=== PATIENT | male | born 1960 | race African-American/Black ===

== ENCOUNTER 2016-11-21 11:10 | Emergency (ER) | payer OTHER ==
[~2016-11-21] VITALS: Ht 180.3 cm; Wt 122.7 kg
[2016-11-21 11:31] VITALS: BP 134/74; PULSE 68; RESP 20; O2SAT 97
--- NOTE | 2016-11-21 11:37 | ED.REPORT ---
HPI-Headache Date of Service Nov 21, 2016 ED Provider: The patient is a 56 year old male with history of hypertension, atrial fibrillation on Pradaxa, and obstructive sleep apnea, who was brought to the emergency department by EMS complaining of lightheadedness. The patient was started on Flecainide 2 weeks ago for atrial fibrillation. Since he was started on this medication he has experienced nonvertiginous dizziness, lightheadedness , and nausea. His symptoms are not worse with standing or sitting up. He called his product sales engineer today who wanted him to come to the office. The patient did not feel well enough to drive so he called 911 and was brought to the emergency department. He is feeling better at this time. He denies loss of consciousness, chest pain, shortness of breath, headache, numbness or weakness. He states that he would like to establish with a product sales engineer in [place] so that he does not have to drive to [place] anymore. Nursing Notes Stated Complaint: DIZZY Chief Complaint: Headache Nursing Notes Reviewed: Yes Allergies: Coded Allergies: No Known Allergies (Unverified , 11/21/16) General Time Seen by MD: 11:37 Chief Complaint Other (lightheadedness) Hx Obtained From: Patient, EMS Arrived By: Ambulance Sudden in Onset?: No Onset Occurred: More than a week ago... Symptom Duration: Since onset Severity: Current: No pain currently Severity: Maximum: No pain Recent Healthcare: No recent hospitalization, Recent doctor visit Similar Sx Previous: Yes Past Medical History Past Medical History Hypertension Atrial fibrillation NICOLE Family History Noncontributory Smoking History Unknown if Ever Smoker Social History Other Social History: Local resident Ambulatory Status Independent Review of Systems GI: Reports: Nausea Neurologic: Reports: Dizziness, Lightheaded, Denies: Focal weakness, Headache, Numbness Complete sys rev & neg: except as marked. Respiratory: Denies: Shortness of breath Cardiovascular: Denies: Chest pain Physical Exam Initial Vital Signs Vital Signs (First) Date Time Temp Pulse Resp B/P Pulse Ox O2 Delivery O2 Flow Rate FiO2 11/21/16 11:31 37.1 68 20 134/74 97 Room Air Initial VS: Reviewed ENT: Mucous membranes moist, Conjunctiva normal, No scleral icterus Respiratory: Breath sounds normal, Clear to auscultation, No respiratory distress Abdomen / GI: Soft, Non-tender, No guarding, No rebound, No distention Lymphatic: No lymphadenopathy Extremities: Vascular intact, Neuro intact, No swelling, No tenderness Skin: Warm, Dry, No cyanosis Psychiatric: Mood/affect normal, Behavior normal, Normal thought content General/Constitutional: Awake, Alert, No acute distress, Cooperative Head / Eyes: Atraumatic, Normocephalic, PERRL, EOMI Neck: Atraumatic, Supple, No meningismus, Full range of motion, No swelling, Non-tender, No midline vertebral tend, No masses Neurologic: Oriented X3, Speech NL, No motor deficits, No sensory deficits, Cerebellar NL, Memory NL Cardiovascular: Heart rate NL, Heart sounds NL Heart Rate / Rhythm: Positive: Irregular rhythm Lower Extremity / Pelvis / MS: Neurologic intact, Vascular intact, No edema No calf swelling or tenderness. Interpretation & Diagnostics Lab Results Interpretation Result Diagram: 11/21/16 1330 11/21/16 1330 Test 11/21/16 11:43 11/21/16 13:30 Hold Lamb Top Tube Received (Received) White Blood Count 10.4th/mm3 (3.8-10.1) Red Blood Count 4.59mil/mm3 (4.40-5.80) Hemoglobin 12.5g/dL (13.8-17.2) Hematocrit 37.8% (41.0-50.0) Mean Corpuscular Volume 82.4fL (81-100) Mean Corpuscular Hemoglobin 27.2pg (27.0-35.0) Mean Corpuscular Hemoglobin Concent 33.1% (32.0-37.0) Red Cell Distribution Width 15.1% (12.3-15.4) Platelet Count 186bil/L (150-400) Neutrophils (%) (Auto) 80.1% (40-74) Lymphocytes (%) (Auto) 14.0% (14-46) Monocytes (%) (Auto) 4.9% (4-12) Eosinophils (%) (Auto) 0.5% (0-5) Basophils (%) (Auto) 0.2% (0-3) Sodium Level 138mEq/L (134-144) Potassium Level 4.5mEq/L (3.5-5.2) Chloride Level 99mEq/L (97-108) Carbon Dioxide Level 21mmol/L (18-29) Blood Urea Nitrogen 12mg/dL (6-24) Creatinine 1.07mg/dL (0.76-1.27) Estimat Glomerular Filtration Rate 75mL/min (>59) Glucose Level 191mg/dL (60-99) Calcium Level 8.8mg/dL (8.5-10.1) Total Bilirubin 0.2mg/dL (0.0-1.2) Aspartate Amino Transf (AST/SGOT) 43U/L (0-50) Alanine Aminotransferase (ALT/SGPT) 109U/L (0-44) Alkaline Phosphatase 112U/L (25-150) Troponin T < 0.010ug/L (0.0-0.011) Total Protein 7.4g/dL (6.4-8.4) Albumin 3.9g/dL (3.4-5.0) ECG Interpretation ECG Interpretation: Atrial fibrillation at a rate of 71 bpm Normal axis Normal intervals No ST segment elevations No T wave abnormalities No prior available for comparison Time: 12:20 Interpreted by: ED physician Re-Eval/Medical Decision Med Decision/Clinical Course The patient is a 56 year old male with history of hypertension, atrial fibrillation on Pradaxa, and obstructive sleep apnea, who was brought to the emergency department by EMS complaining of lightheadedness. The patient was started on Flecainide 2 weeks ago for atrial fibrillation. Since he was started on this medication he has experienced nonvertiginous dizziness, lightheadedness , and nausea. His symptoms are not worse with standing or sitting up. He called his product sales engineer today who wanted him to come to the office. The patient did not feel well enough to drive so he called 911 and was brought to the emergency department. He is feeling better at this time. He denies loss of consciousness, chest pain, shortness of breath, headache, numbness or weakness. He states that he would like to establish with a product sales engineer in [place] so that he does not have to drive to [place] anymore. Here in the emergency department the patient is afebrile, hemodynamically stable and in no apparent distress. EKG was obtained and interpreted by myself as documented above. LABS: CBC unremarkable, troponin negative, CMP unremarkable accept a glucose of 191. The patient's symptoms all correlate with initiating treatment with flecainide. I suspect that his symptoms are secondary to this medication. While he is in atrial fibrillation he is rate controlled and hemodynamically stable. The patient's presentation is not suggestive of acute coronary syndrome or pulmonary embolism. Initial laboratory studies and screening troponin/EKG are reassuring. Patient was discussed with product sales engineer supervisor contingents. Decision was made to reduce flecainide dose by 50%. We will make sure he gets followed up in their clinic in the next couple of days. Patient remained stable in no apparent distress. He is comfortable with this plan. Prior to discharge follow- up and return precautions were reviewed in detail with the patient who verbalized understanding and agreement with the plan. The patient was discharged in stable condition. Source of Hx: Old records, EMS Re-Evaluation/Progress : Time of Eval: 14:41 Re-Evaluation/Progress Note: Rechecked the patient. Discussed results, diagnosis, and plan for discharge. All questions were addressed. Consultation : Referral / Consult Name: Kaiser Hicks MD Consulted With: Cardiology Call Returned at: 12:45 Note: Recommends decreasing his flecainide dose. He will see him in clinic. Counseled Regarding: Diagnosis, Lab results, Need for follow-up, When/why to return to ED Discharge & Departure Impression: Primary Impression: Lightheadedness Additional Impressions: Encounter for monitoring flecainide therapy Medication reaction Encounter type: initial encounter Qualified Code: T88.7XXA - Unspecified adverse effect of drug or medicament, initial encounter History of atrial fibrillation Disposition: Home Discharge Condition All VS Reviewed: Yes Condition: Stable Additional Instructions: Thank you for entrusting us with your care today. Your workup today is reassuring. I spoke to the product sales engineer who recommended decreasing your flecainide dose to 50 mg twice daily. We have given you a referral to Dr. Serna. Call his office today to schedule a close followup appointment. Return to the emergency department for any new or concerning symptoms. Referrals: Kaiser Hicks MD Attestation Portions of this note were transcribed by Emily Lai. I, Dr. Fabian personally performed the history, physical exam and medical decision-making; I reviewed and confirmed the accuracy of the information in the transcribed note. Signed by: Aakash Wild, 11/21/2016 at 1500. copies to: LohavaKaiser matias MD, Beck O MD Nov 21, 2016 11:37 Ming,Emily Lopez Nov 21, 2016 12:07
[2016-11-21 13:43] LABS: BASOPHILS % (AUTO) 0.2 % (0-3); EOSINOPHILS % (AUTO) 0.5 % (0-5); MONOCYTES % (AUTO) 4.9 % (4-12); Mean Corpuscular Hemoglobin 27.2 pg (27.0-35.0); Mean Corpuscular Volume 82.4 fL (81-100); NEUTROPHILS % (AUTO) 80.1 % (40-74); Platelet Count 186 bil/L (150-400)
[2016-11-21 13:44] VITALS: BP 134/85; PULSE 66; RESP 20; O2SAT 97
[2016-11-21 14:10] LABS: TROPONIN T < 0.010 ug/L (0.0-0.011)
[2016-11-21 14:47] VITALS: BP 127/79; PULSE 80; RESP 15; O2SAT 96
== END 2016-11-21 14:44 | disposition home or self-care (01) ==
LOC: EDUNIT# 11:10 → SED 11:10 → EDBD 11:10 → SED 14:44
DX: R42 Dizziness and giddiness (principal); R11.0 Nausea; T46.2X5A Adverse effect of other antidysrhythmic drugs, initial encounter; X58.XXXA Exposure to other specified factors, initial encounter; Y92.9 Unspecified place or not applicable; Y93.89 Activity, other specified; Y99.8 Other external cause status; I48.91 Unspecified atrial fibrillation; I10 Essential (primary) hypertension; G47.33 Obstructive sleep apnea (adult) (pediatric)